=== PATIENT | female | born 1965 | race Caucasian/White ===

== ENCOUNTER 2017-01-28 03:47 | Inpatient (IN) ==
--- NOTE | 2017-01-23 15:51 | EKG Report ---
Test Performed on : 01/23/2017 3:17:28 PM Test Reason : PAT Blood Pressure : / mmHG Vent. Rate : 046 BPM Atrial Rate : 046 BPM P-R Int : 144 ms QRS Dur : 106 ms QT Int : 466 ms P-R-T Axes : 065 084 079 degrees QTc Int : 407 ms Sinus bradycardia. Otherwise normal ECG When compared with ECG of 18-NOV-2014 01:47, No significant change was found Confirmed by Keesha LUKE, Ajit Bennett ([id number]) on 01/24/2017 7:03:31 AM
[2017-01-23 15:52] LABS: HEMATOCRIT 37.9 % (37.0-47.0); HEMOGLOBIN 12.5 g/dL (12.0-16.0); MCH 31.5 PG (27-31); MCV 95.5 FL (81-99); MPV 10.6 FL (7.4-10.4); RBC 3.97 XMIL (4.2-5.4)
[2017-01-23 16:21] LABS: AGAP 10; BUN 8 mg/dL (8-22); CALCIUM 9.2 mg/dL (8.8-10.2); CHLORIDE 103 mmol/L (98-107); COSMO 277; POTASSIUM 3.9 mmol/L (3.5-5.1); SODIUM 140 mmol/L (136-145); TCO2 27 mmol/L (25-35)
[2017-01-28] MEDS ORDERED: LR 1,000 ML ONE ×2 (08:13→11:41)
[2017-01-28] MEDS ORDERED: PEPCID ONE ×2 (08:14)
[2017-01-28] MEDS ORDERED: INVANZ 1 GM/NS 1 GM/50 ML IVPB ONE (08:17)
[2017-01-28] MEDS ORDERED: ENTEREG ONE (08:17)
[2017-01-28] MEDS ORDERED: REGLAN ONE (08:18)
[2017-01-28 10:40] LABS: URINE MICRO REVIEW NEEDED? NO; URINE SOURCE CATH
[2017-01-28 10:43] LABS: BILIRUBIN URINE NEGATIVE (NEGATIVE); BLOOD URINE TRACE (NEGATIVE); COLOR YELLOW; GLUCOSE URINE NEGATIVE (NEGATIVE); LEUKOCYTES URINE NEGATIVE (NEGATIVE); NITRITE URINE NEGATIVE (NEGATIVE); PROTEIN URINE NEGATIVE (NEGATIVE); SP GRAVITY URINE 1.018; TURBIDITY URINE CLEAR (CLEAR); UROBILINOGEN URINE NORMAL (NORMAL)
[2017-01-28 10:44] LABS: UR EPITHELIAL CELLS <10 /HPF (<10); URINE BACTERIA NEGATIVE /HPF; URINE WBC <10 /HPF (<10)
[2017-01-28] MEDS ORDERED: MARCAINE 0.25% PF/EPI 1:200,000 ONE (11:10)
[2017-01-28] MEDS ORDERED: FENTANYL ONE (11:42)
[2017-01-28] MEDS ORDERED: DIPRIVAN 1% ONE (11:43)
[2017-01-28] MEDS ORDERED: NS 1,000 ML ONE (11:53)
[2017-01-28] MEDS ORDERED: OFIRMEV 1000 MG/ISOTONIC SOLN 1,000 MG/100 ML BOTTLE ONE (11:53)
[2017-01-28] MEDS: DILAUDID ONE ×2 (12:09→12:16)
[2017-01-28] MEDS ORDERED: EPHEDRINE ONE (12:33)
[2017-01-28] MEDS ORDERED: ZOFRAN ONE (12:33)
[2017-01-28] MEDS ORDERED: DECADRON ONE (12:33)
[2017-01-28] MEDS ORDERED: XYLOCAINE-MPF 2% ONE (12:33)
[2017-01-28] MEDS ORDERED: RELPAX PO PRN (12:48)
[2017-01-28] MEDS ORDERED: BUPRENEX IV PRN (12:48)
[2017-01-28] MEDS: NS 1,000 ML IV SCH ×2 (12:59→23:30)
[2017-01-28] MEDS: ZOFRAN IV PRN ×2 (12:59→19:16)
[2017-01-28] MEDS ORDERED: PNEUMOVAX 23 IM ONE (15:45)
--- NOTE | 2017-01-28 16:27 | OPERATIVE NOTE ---
PROCEDURE DATE: 01/28/2017 PROCEDURE: Resection of sigmoid colon stricture with primary anastomosis. SURGEON: José Millard MD ENVIRONMENTAL AUDITOR: Yan Reynolds MD, who assisted in exposure and resection and the anastomosis. INDICATIONS: A 51-year-old, who had a very short stricture just past the previously made colon anastomosis. She is here for resolution. DESCRIPTION OF PROCEDURE: Satisfactory general endotracheal anesthesia achieved, the abdomen was prepped and draped in a sterile fashion. The patient was in Robi stirrups. We made an incision in the skin just beside the umbilicus down to the pubis. We carried our incision through the subcutaneous tissue and entered the abdominal cavity taking care not to injure the contents below. We incised some adhesions of the small bowel to the pelvis, placed the patient in Trendelenburg. We used a Bookwalter retractor and exposed the sigmoid colon. We identified the previously placed serosal stitches. We could palpate the stricture just within a cm of those stitches. After isolating the colon proximally, we then placed an angulated bowel clamp more proximally to prevent any leakage. We then incised the colon just proximal to the old anastomosis and grasped the distal colon with Allis' and transected the colon at this point. We then did the same thing distal to the stricture and we held the open end of the colon distally with Allis' as well as the proximal hand. We handed off the stricture. We then constructed a 2 layer anastomosis using 3-0 silks in a Lembert fashion posteriorly. We then placed 3-0 Polysorb running stitch posteriorly, changed to a Vinny stitch anteriorly for the mucosal layer, then the final layer was 3-0 silks in a Lembert fashion anteriorly, this thereby completed the 2 layer anastomosis. The lumen was normal. We changed gloves at this point and rid ourselves of the contaminated instruments. We irrigated out the pelvis copiously with warm saline, placed one 3-0 silk stitch to close the hole in the mesentery. We then allowed the small bowel to return to its normal position. We closed the peritoneum with 2-0 chromic. We closed the fascia with a running #2 Prolene. We used 0.25 Marcaine with epinephrine for local relief of incisional discomfort. We then closed the skin with caroline. Sterile dressing was applied. She tolerated it well, was sent to the recovery room in satisfactory condition. cc: MD Elder March MD
[2017-01-28] MEDS: OFIRMEV 1000 MG/ISOTONIC SOLN 1,000 MG/100 ML BOTTLE IV SCH ×2 (17:48→23:29)
[2017-01-28] MEDS: AMBIEN PO SCH (20:38)
[2017-01-28] MEDS: LOVENOX SUBQ SCH (20:38)
[2017-01-28] MEDS: PERIDEX MT SCH (20:38)
[2017-01-29] MEDS: ULTRAM PO PRN ×3 (04:14→22:14)
[2017-01-29] MEDS: NS 1,000 ML IV SCH ×4 (04:16→22:13)
[2017-01-29] MEDS: OFIRMEV 1000 MG/ISOTONIC SOLN 1,000 MG/100 ML BOTTLE IV SCH ×3 (05:25→17:38)
[2017-01-29 06:14] LABS: HEMATOCRIT 33.5 % (37.0-47.0); HEMOGLOBIN 10.9 g/dL (12.0-16.0); MCH 31.5 PG (27-31); MCHC 32.5 g/dL (33-37); MCV 96.8 FL (81-99); MPV 10.7 FL (7.4-10.4); RBC 3.46 XMIL (4.2-5.4)
[2017-01-29 06:26] LABS: AGAP 10; BUN 12 mg/dL (8-22); CALCIUM 8.1 mg/dL (8.8-10.2); CHLORIDE 105 mmol/L (98-107); COSMO 276; POTASSIUM 4.2 mmol/L (3.5-5.1); SODIUM 138 mmol/L (136-145); TCO2 23 mmol/L (25-35)
[2017-01-29] MEDS: PERIDEX MT SCH ×2 (08:21→22:15)
[2017-01-29] MEDS: NICODERM PATCH TD SCH (08:21)
[2017-01-29] MEDS: ENTEREG PO SCH ×2 (08:21→22:14)
[2017-01-29] MEDS: LOVENOX SUBQ SCH (22:15)
[2017-01-29] MEDS: AMBIEN PO SCH (22:15)
[2017-01-30] MEDS: OFIRMEV 1000 MG/ISOTONIC SOLN 1,000 MG/100 ML BOTTLE IV SCH ×4 (00:01→17:36)
[2017-01-30] MEDS: NS 1,000 ML IV SCH ×2 (09:23→10:07)
[2017-01-30] MEDS: NICODERM PATCH TD SCH (09:23)
[2017-01-30] MEDS: PERIDEX MT SCH ×2 (09:23→20:52)
[2017-01-30] MEDS: ENTEREG PO SCH ×2 (09:24→20:52)
[2017-01-30] MEDS: ZOFRAN IV PRN (15:50)
[2017-01-30] MEDS: LOVENOX SUBQ SCH (20:52)
[2017-01-30] MEDS: AMBIEN PO SCH (20:52)
[2017-01-31] MEDS: OFIRMEV 1000 MG/ISOTONIC SOLN 1,000 MG/100 ML BOTTLE IV SCH ×5 (01:13→22:56)
[2017-01-31] MEDS: NS 1,000 ML IV SCH (05:07)
[2017-01-31] MEDS: PERIDEX MT SCH ×2 (08:28→21:10)
[2017-01-31] MEDS: NICODERM PATCH TD SCH (08:29)
[2017-01-31] MEDS: ENTEREG PO SCH ×2 (08:29→21:10)
[2017-01-31] MEDS ORDERED: SALINE LOCK IV FLUID XX ONE (10:02)
[2017-01-31] MEDS: LOVENOX SUBQ SCH (21:10)
[2017-01-31] MEDS: AMBIEN PO SCH (22:56)
[2017-01-31] MEDS: ULTRAM PO PRN (22:56)
[2017-02-01] MEDS: OFIRMEV 1000 MG/ISOTONIC SOLN 1,000 MG/100 ML BOTTLE IV SCH ×3 (01:31→11:30)
[2017-02-01] MEDS: PERIDEX MT SCH (09:51)
[2017-02-01] MEDS: NICODERM PATCH TD SCH (09:51)
[2017-02-01] MEDS: ENTEREG PO SCH (09:51)
[2017-02-01 11:12] VITALS: BP 109/58
--- NOTE | 2017-02-13 13:00 | DISCHARGE SUMMARY ---
ADMISSION DATE: 01/28/2017 DISCHARGE DATE: 02/01/2017 PRIMARY DISCHARGE DIAGNOSIS: Colonic stricture. PRIMARY PROCEDURE: Revision or a sigmoid colectomy. HISTORY: This is a 51-year-old, who presents with a stricture in her sigmoid at the level of the previous anastomosis. This has been causing her crampy pain and a decrease in the caliber of her bowel movement. She was admitted for revision. She was prepped as an outpatient and admitted the and underwent the operation on the at. HOSPITAL COURSE: We did her primary reanastomosis. The pathology revealed just a scar but no evidence of tumor. Postoperatively she did generally well. We removed her Anderson on the first postoperative day and started her on clear liquids. We advanced her diet subsequently. By 02/01, postop day 4, she was tolerating food. Her bowels had moved. Her wound was fine. DISPOSITION: It was felt she could be discharged home. DISCHARGE INSTRUCTIONS: She will return to the office in a week for re-evaluation and staple removal. cc: José Millard MD
== END 2017-02-01 12:11 | disposition home or self-care (01) ==
LOC: SURHOLD 03:47 → 4N 11:05
PROVIDERS: ADMIT Surgery; ATTEND Surgery